=== PATIENT | female | born 1990 | race American Indian/Alaskan Native ===

== ENCOUNTER 2017-11-25 20:07 | Emergency (ER) | payer OTHER ==
[2017-11-25 21:36] LABS: Basophils # (Auto) 0.1 K/mm3 (0.0-0.1); Basophils % (Auto) 1.6 % (0.0-1.8); Eosinophils # (Auto) 0.3 K/mm3 (0.0-0.4); Eosinophils % (Auto) 4.2 % (0.0-4.3); Hematocrit 38.2 % (30.3-42.9); Hemoglobin 12.5 gm/dl (10.1-14.3); Lymphocytes # (Auto) 2.3 K/mm3 (1.2-5.4); Lymphocytes % (Auto) 34.8 % (13.4-35.0); Mean Corpuscular HGB Conc 33 % (30-34); Mean Corpuscular Hemoglobin 29 pg (28-32); Mean Corpuscular Volume 88 fl (79-97); Monocytes # (Auto) 0.6 K/mm3 (0.0-0.8); Monocytes % (Auto) 8.9 % (0.0-7.3); Platelet Count 271 K/mm3 (140-440); Red Blood Count 4.34 M/mm3 (3.65-5.03); Red Cell Distribution Width 13.9 % (13.2-15.2)
--- NOTE | 2017-11-26 01:01 | Ultrasound Report ---
FINAL REPORT EXAM: US OB TRANSVAGINAL HISTORY: Vaginal Bleeding TECHNIQUE: Transvaginal imaging was obtained of the pelvis. FINDINGS: The uterus is anteverted measuring 6.4 cm x 4.5 cm x 5.7 cm. The endometrial thickness is 5.3 millimeters. There is no evidence of a gestational sac. Along the endocervical canal is 7 millimeter cystic structure. Whether this represents retained products of conception or nabothian cyst is uncertain. Free fluid is not seen. The right ovary is normal size contour and echotexture measuring 3.1 cm x 2.3 cm x 2.2 cm. The left ovary is normal size contour and echotexture measuring 3.2 cm x 1.6 cm x 2 cm. IMPRESSION: No evidence of an intrauterine at this time. 7 mm cystic structure in the cervix. As to whether this represents retained products of conception or nabothian cyst is uncertain. Normal appearing ovaries.
--- NOTE | 2017-11-26 01:04 | Ultrasound Report ---
FINAL REPORT EXAM: US OB < = 14 WEEKS FETUS HISTORY: Vaginal Bleeding TECHNIQUE: Transabdominal imaging was obtained of the pelvis. FINDINGS: The uterus is anteverted measuring 6.4 cm x 4.5 cm x 5.7 cm. There is no evidence of an intrauterine gestational sac. The endometrial thickness is 5.3 mm. In the endocervical canal there is a 7 mm cystic structure. As to whether this represents retained products of conception or a nabothian cyst is uncertain. Both ovaries are normal in size contour and echotexture. The right ovary measures 3.1 cm x 2.3 cm x 2.2 cm. The left ovary measures 3.2 cm x 1.6 cm x 2 cm. There is no evidence of free fluid IMPRESSION: No evidence of an intrauterine at this time. 7 mm cystic structure in the cervix as described. As to whether this represents retained products of conception or an nabothian cyst is uncertain.
[2017-11-26 02:06] LABS: Bilirubin,Urine NEG (Negative); Blood,Urine LG (Negative); Color,Urine Red (Yellow); Mucus,Urine FEW /HPF; Nitrite,Urine NEG (Negative); Urobilinogen,Urine < 2.0 mg/dL (<2.0)
[2017-11-26] MEDS ORDERED: TORADOL IM ONE (02:07)
[2017-11-26] MEDS ORDERED: PERCOCET 5/325 PO PRN (02:07)
--- NOTE | 2017-11-26 02:11 | Emergency Department Report ---
ED Female HPI - General Chief complaint: Vaginal Bleeding Stated complaint: POSSIBLE MISCARRIAGE Time Seen by Provider: 11/26/17 01:49 Source: patient, RN notes reviewed Mode of arrival: Ambulatory Limitations: No Limitations - History of Present Illness Initial comments: This is a 27-year-old female who was previously unknown to this provider. She is 1, para 0. Last menstrual period is "sometime in the beginning of October." Patient's [employer] doctor is Dr. Stark at [facility] Patient reports that a day and a half ago she was seen at [facility] for vaginal bleeding, had quantitative hCG of 1999, and reports and ultrasound that suggested early intrauterine . She was instructed to return in 2 days for follow-up. She reports that's slightly less than a day later, she developed vaginal bleeding, cramping, and abdominal discomfort. This is constant. It does not radiate anywhere. Has no exacerbating or relieving factors. She endorses no headache, neck pain, chest pain, shortness of breath, urinary symptoms. MD Complaint: vaginal bleeding, pelvic pain -: Gradual Location: perineum Radiation: non-radiating Severity: moderate Quality: cramping Consistency: constant Improves with: none Worsens with: none Are you Now?: Yes Associated Symptoms: vaginal bleeding, abdominal pain. denies: vaginal discharge, nausea/vomiting, fever/chills, headaches, loss of appetite, dysuria, hematuria, rash, seizure, shortness of breath, syncope, weakness - Related Data Sexually active: Yes Previous Rx's Medication Instructions Recorded Last Taken Type HYDROcodone/ACETAMINOPHEN [[place] 1 each PO Q6H #20 tablet 12/01/14 Unknown Rx 7.5-325 mg TAB] Sulfamethoxazole/Trimethoprim 1 each PO Q12H #20 tablet 12/01/14 Unknown Rx [Bactrim Ds] Acetaminophen [Tylenol Arthritis] 650 mg PO Q6HR PRN #30 tablet.er 11/26/17 Unknown Rx Ibuprofen [Motrin] 600 mg PO Q8H PRN #30 tablet 11/26/17 Unknown Rx Ondansetron [Zofran Odt] 4 mg PO Q8HR PRN #20 tab.rapdis 11/26/17 Unknown Rx oxyCODONE [Roxicodone] 5 mg PO Q6HR PRN #15 tablet 11/26/17 Unknown Rx Allergies Allergy/AdvReac Type Severity Reaction Status Date / Time No Known Allergies Allergy Verified 12/01/14 23:28 ED Review of Systems ROS: Stated complaint: POSSIBLE MISCARRIAGE Other details as noted in HPI ED Past Medical Hx - Past Medical History Previous Medical History?: No Hx Hypertension: Yes Additional medical history: Pilonidal cyst - Surgical History Past Surgical History?: Yes - Social History Smoking Status: Never Smoker Substance Use Type: None - Medications Home Medications: Home Medications Medication Instructions Recorded Confirmed Last Taken Type HYDROcodone/ACETAMINOPHEN [[place] 1 each PO Q6H #20 tablet 12/01/14 Unknown Rx 7.5-325 mg TAB] Sulfamethoxazole/Trimethoprim 1 each PO Q12H #20 tablet 12/01/14 Unknown Rx [Bactrim Ds] Acetaminophen [Tylenol Arthritis] 650 mg PO Q6HR PRN #30 tablet.er 11/26/17 Unknown Rx Ibuprofen [Motrin] 600 mg PO Q8H PRN #30 tablet 11/26/17 Unknown Rx Ondansetron [Zofran Odt] 4 mg PO Q8HR PRN #20 tab.rapdis 11/26/17 Unknown Rx oxyCODONE [Roxicodone] 5 mg PO Q6HR PRN #15 tablet 11/26/17 Unknown Rx ED Physical Exam - General Limitations: No Limitations General appearance: alert, in no apparent distress - Head Head exam: Present: atraumatic, normocephalic - Eye Eye exam: Present: normal appearance, EOMI. Absent: nystagmus - ENT ENT exam: Present: normal exam, normal orophraynx, mucous membranes moist, normal external ear exam - Neck Neck exam: Present: normal inspection, full ROM. Absent: tenderness, meningismus - Respiratory Respiratory exam: Present: normal lung sounds bilaterally. Absent: respiratory distress - Cardiovascular Cardiovascular Exam: Present: regular rate, normal rhythm, normal heart sounds. Absent: systolic murmur, diastolic murmur, rubs, gallop - GI/Abdominal GI/Abdominal exam: Present: soft, normal bowel sounds. Absent: distended, tenderness, guarding, rebound, rigid, bruit, pulsatile mass - Extremities Exam Extremities exam: Present: normal inspection, full ROM, normal capillary refill. Absent: pedal edema, joint swelling, calf tenderness - Back Exam Back exam: Present: normal inspection, full ROM. Absent: tenderness, CVA tenderness (R), paraspinal tenderness, vertebral tenderness - Neurological Exam Neurological exam: Present: alert, oriented X3, CN II-XII intact, normal gait, other (Extraocular movements intact. Tongue midline. No facial droop. Facial sensation intact to light touch in the V1, V2, V3 distribution bilaterally. 5 and 5 strength in 4 extremities.. Sensation is intact to light touch in 4 extremities.). Absent: motor sensory deficit - Psychiatric Psychiatric exam: Present: normal affect, normal mood - Skin Skin exam: Present: warm, dry, intact, normal color. Absent: rash ED Course Vital Signs 11/25/17 11/26/17 11/26/17 21:13 01:47 02:21 Temperature 98.2 F Pulse Rate 83 64 Respiratory 17 18 20 Rate Blood Pressure 123/81 Blood Pressure 128/93 [Right] O2 Sat by Pulse 99 Oximetry 11/26/17 11/26/17 02:22 02:25 Temperature Pulse Rate Respiratory 18 20 Rate Blood Pressure Blood Pressure [Right] O2 Sat by Pulse 99 Oximetry ED Medical Decision Making - Lab Data Result diagrams: 11/25/17 21:20 Vital Signs - 24 hr 11/25/17 11/26/17 11/26/17 21:13 01:47 02:21 Temperature 98.2 F Pulse Rate 83 64 Respiratory 17 18 20 Rate Blood Pressure 123/81 Blood Pressure 128/93 [Right] O2 Sat by Pulse 99 Oximetry 11/26/17 11/26/17 02:22 02:25 Temperature Pulse Rate Respiratory 18 20 Rate Blood Pressure Blood Pressure [Right] O2 Sat by Pulse 99 Oximetry Lab Results 11/25/17 11/25/17 11/25/17 Range/Units 21:20 21:20 21:20 WBC 6.7 (4.5-11.0) K/mm3 RBC 4.34 (3.65-5.03) M/mm3 Hgb 12.5 (10.1-14.3) gm/dl Hct 38.2 (30.3-42.9) % MCV 88 (79-97) fl MCH 29 (28-32) pg MCHC 33 (30-34) % RDW 13.9 (13.2-15.2) % Plt Count 271 (140-440) K/mm3 Lymph % (Auto) 34.8 (13.4-35.0) % Dundy % (Auto) 8.9 H (0.0-7.3) % Eos % (Auto) 4.2 (0.0-4.3) % Baso % (Auto) 1.6 (0.0-1.8) % Lymph # 2.3 (1.2-5.4) K/mm3 Dundy # 0.6 (0.0-0.8) K/mm3 Eos # 0.3 (0.0-0.4) K/mm3 Baso # 0.1 (0.0-0.1) K/mm3 Seg Neutrophils % 50.5 (40.0-70.0) % Seg Neutrophils # 3.4 (1.8-7.7) K/mm3 HCG, Quant 640.0 H (0-4) mIU/mL Urine Color (Yellow) Urine Turbidity (Clear) Urine pH (5.0-7.0) Ur Specific [place] (1.003-1.030) Urine Protein (Negative) mg/dL Urine Glucose (UA) (Negative) mg/dL Urine Ketones (Negative) mg/dL Urine Blood (Negative) Urine Nitrite (Negative) Urine Bilirubin (Negative) Urine Urobilinogen (<2.0) mg/dL Ur Leukocyte Esterase (Negative) Urine WBC (Auto) (0.0-6.0) /HPF Urine RBC (Auto) (0.0-6.0) /HPF U Epithel Cells (Auto) (0-13.0) /HPF Urine Mucus /HPF Blood Type O POSITIVE Antibody Screen Negative 11/25/17 Range/Units Unknown WBC (4.5-11.0) K/mm3 RBC (3.65-5.03) M/mm3 Hgb (10.1-14.3) gm/dl Hct (30.3-42.9) % MCV (79-97) fl MCH (28-32) pg MCHC (30-34) % RDW (13.2-15.2) % Plt Count (140-440) K/mm3 Lymph % (Auto) (13.4-35.0) % Dundy % (Auto) (0.0-7.3) % Eos % (Auto) (0.0-4.3) % Baso % (Auto) (0.0-1.8) % Lymph # (1.2-5.4) K/mm3 Dundy # (0.0-0.8) K/mm3 Eos # (0.0-0.4) K/mm3 Baso # (0.0-0.1) K/mm3 Seg Neutrophils % (40.0-70.0) % Seg Neutrophils # (1.8-7.7) K/mm3 HCG, Quant (0-4) mIU/mL Urine Color Red (Yellow) Urine Turbidity Clear (Clear) Urine pH 5.0 (5.0-7.0) Ur Specific [place] 1.024 (1.003-1.030) Urine Protein 30 mg/dl (Negative) mg/dL Urine Glucose (UA) Neg (Negative) mg/dL Urine Ketones Neg (Negative) mg/dL Urine Blood Lg (Negative) Urine Nitrite Neg (Negative) Urine Bilirubin Neg (Negative) Urine Urobilinogen < 2.0 (<2.0) mg/dL Ur Leukocyte Esterase Neg (Negative) Urine WBC (Auto) 12.0 H (0.0-6.0) /HPF Urine RBC (Auto) 4.0 (0.0-6.0) /HPF U Epithel Cells (Auto) 17.0 H (0-13.0) /HPF Urine Mucus Few /HPF Blood Type Antibody Screen - Radiology Data Radiology results: report reviewed, image reviewed Print Report Referring Physician: GUSTAVO MEDRANO Patient Name: QIAN LUNA Date of : 1990 Sex: Female Report Date: 2017-11-25 Report Status: Finalized Findings [address] [address] Ultrasound Report Signed Patient: QIAN LUNA MR#: [id number] : 1990 Acct:[id number] Age/Sex: 27 / F ADM Date: 11/25/17 Loc: ED Attending Dr: Ordering Physician: GUSTAVO MEDRANO MD Date of Service: 11/25/17 Procedure(s): US OB transvaginal Accession Number(s): [id number] cc: GUSTAVO MEDRANO MD FINAL REPORT EXAM: US OB TRANSVAGINAL HISTORY: Vaginal Bleeding TECHNIQUE: Transvaginal imaging was obtained of the pelvis. FINDINGS: The uterus is anteverted measuring 6.4 cm x 4.5 cm x 5.7 cm. The endometrial thickness is 5.3 millimeters. There is no evidence of a gestational sac. Along the endocervical canal is 7 millimeter cystic structure. Whether this represents retained products of conception or nabothian cyst is uncertain. Free fluid is not seen. The right ovary is normal size contour and echotexture measuring 3.1 cm x 2.3 cm x 2.2 cm. The left ovary is normal size contour and echotexture measuring 3.2 cm x 1.6 cm x 2 cm. IMPRESSION: No evidence of an intrauterine at this time. 7 mm cystic structure in the cervix. As to whether this represents retained products of conception or nabothian cyst is uncertain. Normal appearing ovaries. Transcribed By: RB Dictated By: JAKI KRAUS MD Electronically Authenticated By: JAKI KRAUS MD Signed Date/Time: 11/25/172057 - Medical Decision Making Differential diagnosis, including but not limited to: , miscarriage, threatened miscarriage, ectopic Assessment and plan: 27-year-old female with probable miscarriage at this time. Quantitative hCG 640, down from reported level of 2000. Ultrasound today does not demonstrate evidence of intrauterine . There is a 7 mm cystic structure noted in the cervix. Patient declined a gynecologic exam, she indicates she is given a follow-up with her outpatient emergency medicine medical director. She is Rh+ . Critical care attestation.: If time is entered above; I have spent that time in minutes in the direct care of this critically ill patient, excluding procedure time. ED Disposition Clinical Impression: Miscarriage Disposition: DC-01 TO HOME OR SELFCARE Is pt being admited?: No Does the pt Need Aspirin: No Condition: Stable Instructions: Spontaneous Miscarriage (ED) Additional Instructions: Rest, and avoid heavy lifting. Avoid strenuous physical activity. Avoid sex and sexual activity. Follow-up in 2 days either in this emergency room, or with your private [employer] doctor for repeat physical exam, repeat quantitative hCG. Take the pain medication as directed, return to the ER right away with new pain, worsened pain, migration of pain, intractable nausea or vomiting, confusion, inability to tolerate liquid feeds. Referrals: [facility] [Provider Group] - 3-5 Days SMITH NEAL MD [Staff Physician] - 3-5 Days
[2017-11-26 03:35] VITALS: BP 128/79
== END 2017-11-26 03:35 | disposition home or self-care (01) ==
LOC: ED 20:07
DX: O03.9 Complete or unspecified spontaneous abortion without complication (principal); Z3A.01 Less than 8 weeks gestation of pregnancy
CPT/HCPCS: 36415; 76801; 76817; 81001; 84702; 85025; 86850; 86900; 86901; 96372; 99284; J1885

== ENCOUNTER 2017-12-10 12:52 | Emergency (ER) | payer OTHER ==
[2017-12-10 12:59] VITALS: BP 130/69
--- NOTE | 2017-12-10 14:20 | Emergency Department Report ---
HPI - General Chief Complaint: Vaginal Bleeding Time Seen by Provider: 12/10/17 13:44 - HPI HPI: Patient is a 27-year-old female who was seen here last week for complaints of vaginal bleeding and possible miscarriage. Patient presented today to 2 days ago vaginal bleeding and that she rates as low pelvic cramping. Patient states she hasn't been admitted for intensive low pelvic cramping. Patient states she is eating normally, normal bowel movements. Patient states that vaginal bleeding mildly less today but low pelvic cramping is still persistent. Patient states that she was unable to take the medication she was given because this is strong and made her sick. She took some Aleve and that did not help with the pain. She denies headaches/dizziness or shortness of breath/lightheadedness or blurred vision. ED Past Medical Hx - Past Medical History Hx Hypertension: Yes Additional medical history: Pilonidal cyst - Social History Smoking Status: Never Smoker Substance Use Type: None - Medications Home Medications: Home Medications Medication Instructions Recorded Confirmed Last Taken Type HYDROcodone/ACETAMINOPHEN [[place] 1 each PO Q6H #20 tablet 12/01/14 Unknown Rx 7.5-325 mg TAB] Sulfamethoxazole/Trimethoprim 1 each PO Q12H #20 tablet 12/01/14 Unknown Rx [Bactrim Ds] Acetaminophen [Tylenol Arthritis] 650 mg PO Q6HR PRN #30 tablet.er 11/26/17 Unknown Rx Ibuprofen [Motrin] 600 mg PO Q8H PRN #30 tablet 11/26/17 Unknown Rx Ondansetron [Zofran Odt] 4 mg PO Q8HR PRN #20 tab.rapdis 11/26/17 Unknown Rx oxyCODONE [Roxicodone] 5 mg PO Q6HR PRN #15 tablet 11/26/17 Unknown Rx Naproxen [Naprosyn] 500 mg PO BID #40 tablet 12/10/17 Unknown Rx traMADol [Ultram 50 MG tab] 50 mg PO Q6HR PRN #20 tablet 12/10/17 Unknown Rx ED Review of Systems ROS: Stated complaint: BACK PAIN Other details as noted in HPI Constitutional: denies: chills, fever Eyes: denies: eye pain, eye discharge, vision change ENT: denies: ear pain, throat pain Respiratory: denies: cough, shortness of breath, wheezing Cardiovascular: denies: chest pain, palpitations Endocrine: no symptoms reported Gastrointestinal: denies: abdominal pain, nausea, diarrhea Genitourinary: denies: urgency, dysuria, discharge Musculoskeletal: denies: back pain, joint swelling, arthralgia Skin: denies: rash, lesions Neurological: denies: headache, weakness, paresthesias Psychiatric: denies: anxiety, depression Hematological/Lymphatic: denies: easy bleeding, easy bruising Physical Exam - Physical Exam Vital Signs: Vital Signs 12/10/17 12:54 Temperature 98.3 F Pulse Rate 83 Respiratory 16 Rate Blood Pressure 130/69 O2 Sat by Pulse 100 Oximetry Physical Exam: GENERAL: Alert and oriented x3, no apparent distress, Normal Gait, atraumatic. HEAD: Head is normocephalic and a-traumatic. NECK: Supple. Non edematous, No carotid bruits. No lymphadenopathy or thyromegaly. No C-spine tenderness LUNGS: Symetrical with respiration, No wheezing, no rales or crackles, CTAB. HEART: S1, S2 present, regular rate and rhythm without murmur, no rubs, no gallops. Non tender to palpation ABDOMEN: No organomegaly was noted,Positive bowel sounds, soft, and non- distended. . Nontender to palpation on all Quadrants, NO CVA tenderness. BACK: Full range of motion, no spinal tenderness, nontender to palpation. SKIN: Warm and dry, No lesions, No ulceration or induration present. ED Course Vital Signs 12/10/17 12:54 Temperature 98.3 F Pulse Rate 83 Respiratory 16 Rate Blood Pressure 130/69 O2 Sat by Pulse 100 Oximetry ED Medical Decision Making - Medical Decision Making 27-year-old female presents to ED with complete ED course: Pt received a repeat quantitative in ED Quantitative was decreased to 6.4 from 640 last week Patient states that bleeding is mildly resolved, just still x-ray than some pelvic pain Patient is states that she has an appointment with her ROD FILLER on Saturday Ultrasound from last week shows no IUP Vital signs normalized patient is in no acute distress. I discussed with the patient if follow-up with her ROD FILLER. Referrals given. I discussed all labs and ultrasound findings with the patient. I discussed with the patient that he if bleeding worsens or new symptoms develop to return to ED immediately. Critical care attestation.: If time is entered above; I have spent that time in minutes in the direct care of this critically ill patient, excluding procedure time. ED Disposition Clinical Impression: Complete spontaneous Disposition: DC- TO HOME OR SELFCARE Is pt being admited?: No Does the pt Need Aspirin: No Condition: Stable Instructions: Spontaneous Miscarriage (ED) Additional Instructions: Make sure to follow up with the primary care physician as discussed. Follow-up with your ROD FILLER. Take all your medications as you've been prescribed. If you have any worsening symptoms or develop new symptoms please return to ED immediately. Prescriptions: Naproxen [Naprosyn] 500 mg PO BID #40 tablet traMADol [Ultram 50 MG tab] 50 mg PO Q6HR PRN #20 tablet PRN Reason: Pain Referrals: PRIMARY CARE,MD [Primary Care Provider] - 3-5 Days Forms: Accompanied Note, Work/School Release Form(ED) Time of Disposition: 14:57
[2017-12-10] MEDS ORDERED: NAPROSYN PO ONE (14:45)
== END 2017-12-10 15:00 | disposition home or self-care (01) ==
LOC: ED 12:52
DX: O03.9 Complete or unspecified spontaneous abortion without complication (principal); I10 Essential (primary) hypertension
CPT/HCPCS: 36415; 84702; 99283

== ENCOUNTER 2017-12-27 18:49 | Emergency (ER) | payer OTHER ==
[2017-12-27] MEDS ORDERED: MOTRIN PO ONE (20:41)
--- NOTE | 2017-12-27 23:19 | Emergency Department Report ---
ED ENT HPI - General Chief complaint: Dental/Oral Stated complaint: TOOTH/HEAD PAIN Time Seen by Provider: 12/27/17 23:14 Source: patient Mode of arrival: Ambulatory Limitations: No Limitations - History of Present Illness Initial comments: 27-year-old female presents with complaint of left upper toothache. Patient states she has a severe cavity and is getting it addressed by a dentist in 3 days. Patient states she was taking Motrin at home with minimal relief of pain. Denies any pus or blood drainage from mouth speaking in full sentences no trismus or drooling noted on exam. Patient awake alert and oriented 3. Denies any fevers or chills. MD complaint: tooth pain Onset/Timin -: week(s) Location: tooth # 1 - cavity here Severity: moderate Severity scale (0 -10): 5 Quality: aching Consistency: constant Worsens with: eating Context- Dental: history of dental caries, poor dental care Associated Symptoms: toothache - Related Data Previous Rx's Medication Instructions Recorded Last Taken Type HYDROcodone/ACETAMINOPHEN [[place] 1 each PO Q6H #20 tablet 12/01/14 Unknown Rx 7.5-325 mg TAB] Sulfamethoxazole/Trimethoprim 1 each PO Q12H #20 tablet 12/01/14 Unknown Rx [Bactrim Ds] Acetaminophen [Tylenol Arthritis] 650 mg PO Q6HR PRN #30 tablet.er 11/26/17 Unknown Rx Ibuprofen [Motrin] 600 mg PO Q8H PRN #30 tablet 11/26/17 Unknown Rx Ondansetron [Zofran Odt] 4 mg PO Q8HR PRN #20 tab.rapdis 11/26/17 Unknown Rx oxyCODONE [Roxicodone] 5 mg PO Q6HR PRN #15 tablet 11/26/17 Unknown Rx Naproxen [Naprosyn] 500 mg PO BID #40 tablet 12/10/17 Unknown Rx traMADol [Ultram 50 MG tab] 50 mg PO Q6HR PRN #20 tablet 12/10/17 Unknown Rx Chlorhexidine Mouthwash [Peridex] 15 ml MM BID #1 bottle 12/27/17 Unknown Rx Clindamycin [Clindamycin CAP] 300 mg PO Q6H #28 capsule 12/27/17 Unknown Rx Ibuprofen [Motrin] 600 mg PO Q8H PRN #25 tablet 12/27/17 Unknown Rx traMADol [Ultram 50 MG tab] 50 mg PO Q6HR PRN #15 tablet 12/27/17 Unknown Rx Allergies Allergy/AdvReac Type Severity Reaction Status Date / Time No Known Allergies Allergy Verified 12/01/14 23:28 ED Dental HPI - General Chief complaint: Dental/Oral Stated complaint: TOOTH/HEAD PAIN Time Seen by Provider: 12/27/17 23:14 Source: patient Mode of arrival: Ambulatory Limitations: No Limitations - Related Data Previous Rx's Medication Instructions Recorded Last Taken Type HYDROcodone/ACETAMINOPHEN [[place] 1 each PO Q6H #20 tablet 12/01/14 Unknown Rx 7.5-325 mg TAB] Sulfamethoxazole/Trimethoprim 1 each PO Q12H #20 tablet 12/01/14 Unknown Rx [Bactrim Ds] Acetaminophen [Tylenol Arthritis] 650 mg PO Q6HR PRN #30 tablet.er 11/26/17 Unknown Rx Ibuprofen [Motrin] 600 mg PO Q8H PRN #30 tablet 11/26/17 Unknown Rx Ondansetron [Zofran Odt] 4 mg PO Q8HR PRN #20 tab.rapdis 11/26/17 Unknown Rx oxyCODONE [Roxicodone] 5 mg PO Q6HR PRN #15 tablet 11/26/17 Unknown Rx Naproxen [Naprosyn] 500 mg PO BID #40 tablet 12/10/17 Unknown Rx traMADol [Ultram 50 MG tab] 50 mg PO Q6HR PRN #20 tablet 12/10/17 Unknown Rx Chlorhexidine Mouthwash [Peridex] 15 ml MM BID #1 bottle 12/27/17 Unknown Rx Clindamycin [Clindamycin CAP] 300 mg PO Q6H #28 capsule 12/27/17 Unknown Rx Ibuprofen [Motrin] 600 mg PO Q8H PRN #25 tablet 12/27/17 Unknown Rx traMADol [Ultram 50 MG tab] 50 mg PO Q6HR PRN #15 tablet 12/27/17 Unknown Rx Allergies Allergy/AdvReac Type Severity Reaction Status Date / Time No Known Allergies Allergy Verified 12/01/14 23:28 ED Review of Systems ROS: Stated complaint: TOOTH/HEAD PAIN Other details as noted in HPI Constitutional: denies: chills, fever Eyes: denies: eye pain, eye discharge, vision change ENT: dental pain. denies: ear pain, throat pain Respiratory: denies: cough, shortness of breath, wheezing Cardiovascular: denies: chest pain, palpitations Endocrine: no symptoms reported Gastrointestinal: denies: abdominal pain, nausea, diarrhea Genitourinary: denies: urgency, dysuria, discharge Musculoskeletal: denies: back pain, joint swelling, arthralgia Skin: denies: rash, lesions Neurological: denies: headache, weakness, paresthesias Psychiatric: denies: anxiety, depression Hematological/Lymphatic: denies: easy bleeding, easy bruising ED Past Medical Hx - Past Medical History Hx Hypertension: Yes Additional medical history: Pilonidal cyst - Surgical History Past Surgical History?: No - Social History Smoking Status: Current Every Day Smoker Substance Use Type: None - Medications Home Medications: Home Medications Medication Instructions Recorded Confirmed Last Taken Type HYDROcodone/ACETAMINOPHEN [[place] 1 each PO Q6H #20 tablet 12/01/14 Unknown Rx 7.5-325 mg TAB] Sulfamethoxazole/Trimethoprim 1 each PO Q12H #20 tablet 12/01/14 Unknown Rx [Bactrim Ds] Acetaminophen [Tylenol Arthritis] 650 mg PO Q6HR PRN #30 tablet.er 11/26/17 Unknown Rx Ibuprofen [Motrin] 600 mg PO Q8H PRN #30 tablet 11/26/17 Unknown Rx Ondansetron [Zofran Odt] 4 mg PO Q8HR PRN #20 tab.rapdis 11/26/17 Unknown Rx oxyCODONE [Roxicodone] 5 mg PO Q6HR PRN #15 tablet 11/26/17 Unknown Rx Naproxen [Naprosyn] 500 mg PO BID #40 tablet 12/10/17 Unknown Rx traMADol [Ultram 50 MG tab] 50 mg PO Q6HR PRN #20 tablet 12/10/17 Unknown Rx Chlorhexidine Mouthwash [Peridex] 15 ml MM BID #1 bottle 12/27/17 Unknown Rx Clindamycin [Clindamycin CAP] 300 mg PO Q6H #28 capsule 12/27/17 Unknown Rx Ibuprofen [Motrin] 600 mg PO Q8H PRN #25 tablet 12/27/17 Unknown Rx traMADol [Ultram 50 MG tab] 50 mg PO Q6HR PRN #15 tablet 12/27/17 Unknown Rx ED Physical Exam - General Limitations: No Limitations General appearance: alert, in no apparent distress - Head Head exam: Present: atraumatic, normocephalic - Eye Eye exam: Present: normal appearance, PERRL, EOMI - ENT ENT exam: Present: mucous membranes moist - Expanded ENT Exam Expanded Teeth exam: Present: dental tenderness # 1 - Dental Tenderness (cavity here) - Neck Neck exam: Present: normal inspection - Respiratory Respiratory exam: Present: normal lung sounds bilaterally. Absent: respiratory distress - Cardiovascular Cardiovascular Exam: Present: regular rate, normal rhythm. Absent: systolic murmur, diastolic murmur, rubs, gallop - GI/Abdominal GI/Abdominal exam: Present: soft, normal bowel sounds - Extremities Exam Extremities exam: Present: normal inspection - Back Exam Back exam: Present: normal inspection - Neurological Exam Neurological exam: Present: alert, oriented X3 - Psychiatric Psychiatric exam: Present: normal affect, normal mood - Skin Skin exam: Present: warm, dry, intact, normal color. Absent: rash ED Course Vital Signs 12/27/17 20:35 Temperature 98.7 F Pulse Rate 94 H Respiratory 18 Rate Blood Pressure 135/91 ED Medical Decision Making - Medical Decision Making A/P: dental cavities, toothache 1- Motrin when necessary, clindamycin course because patient is allergic to penicillin, Peridex mouthwash daily basis, short course codeine when necessary 2- patient states she has a follow-up with a dentist in 3 days 3- no clinical signs of facial abscess, no Hung's angina, no induration or cellulitis of floor of mouth or tongue 4- patient able to tolerate by mouth before discharge 5- no signs of facial infection. Advised patient that if she does not take antibiotics with follow-up with a dentist as soon as possible that a can result in potentially serious or dangerous infection to develop in jaw or face. Patient states that he understood these instructions. I advised patient to return to the ED for any persistent unrelenting nausea or vomiting fever or chills or headaches. Critical care attestation.: If time is entered above; I have spent that time in minutes in the direct care of this critically ill patient, excluding procedure time. ED Disposition Clinical Impression: Dental caries, Toothache Disposition: TO HOME OR SELFCARE Is pt being admited?: No Does the pt Need Aspirin: No Condition: Stable Instructions: Dental Caries (ED), Toothache (ED) Prescriptions: Chlorhexidine Mouthwash [Peridex] 15 ml MM BID #1 bottle Clindamycin [Clindamycin CAP] 300 mg PO Q6H #28 capsule Ibuprofen [Motrin] 600 mg PO Q8H PRN #25 tablet PRN Reason: Pain traMADol [Ultram 50 MG tab] 50 mg PO Q6HR PRN #15 tablet PRN Reason: Pain Referrals: [facility] [Outside] - 3-5 Days Time of Disposition: 23:17
[2017-12-27] MEDS ORDERED: ULTRAM PO ONE (23:21)
[2017-12-28 00:24] VITALS: BP 133/89
== END 2017-12-27 23:40 | disposition home or self-care (01) ==
LOC: ED 18:49
DX: K02.9 Dental caries, unspecified (principal); I10 Essential (primary) hypertension; F17.200 Nicotine dependence, unspecified, uncomplicated
CPT/HCPCS: 99282

== ENCOUNTER 2018-06-19 18:56 | Emergency (ER) | payer OTHER ==
[2018-06-20] MEDS ORDERED: ULTRAM PO ONE (01:31)
[2018-06-20] MEDS ORDERED: BACTRIM DS PO ONE (01:31)
--- NOTE | 2018-06-20 01:37 | Emergency Department Report ---
Abscess Boil HPI - HPI Chief Complaint: Skin/Abscess/Foreign Body Stated Complaint: CYST ON TAIL BONE/ABD PAIN Time Seen by Provider: 06/19/18 23:11 Duration: 2 Days Location: Other (groin) Severity: Mild History: Yes Previous History, No Fever, No Pain, No Purulent Drainage, No Insect Bite (recurring pilonidal abscess, ) Home Medications: Previous Rx's Medication Instructions Recorded Last Taken Type HYDROcodone/ACETAMINOPHEN [[place] 1 each PO Q6H #20 tablet 12/01/14 Unknown Rx 7.5-325 mg TAB] Sulfamethoxazole/Trimethoprim 1 each PO Q12H #20 tablet 12/01/14 Unknown Rx [Bactrim Ds] Acetaminophen [Tylenol Arthritis] 650 mg PO Q6HR PRN #30 tablet.er 11/26/17 Unknown Rx Ibuprofen [Motrin] 600 mg PO Q8H PRN #30 tablet 11/26/17 Unknown Rx Ondansetron [Zofran Odt] 4 mg PO Q8HR PRN #20 tab.rapdis 11/26/17 Unknown Rx oxyCODONE [Roxicodone] 5 mg PO Q6HR PRN #15 tablet 11/26/17 Unknown Rx Naproxen [Naprosyn] 500 mg PO BID #40 tablet 12/10/17 Unknown Rx traMADol [Ultram 50 MG tab] 50 mg PO Q6HR PRN #20 tablet 12/10/17 Unknown Rx Chlorhexidine Mouthwash [Peridex] 15 ml MM BID #1 bottle 12/27/17 Unknown Rx Clindamycin [Clindamycin CAP] 300 mg PO Q6H #28 capsule 12/27/17 Unknown Rx Ibuprofen [Motrin] 600 mg PO Q8H PRN #25 tablet 12/27/17 Unknown Rx traMADol [Ultram 50 MG tab] 50 mg PO Q6HR PRN #15 tablet 12/27/17 Unknown Rx Sulfamethoxazole/Trimethoprim 1 each PO BID #20 tablet 06/20/18 Unknown Rx [Bactrim DS TAB] traMADol [Ultram] 50 mg PO Q6HR PRN #12 tablet 06/20/18 Unknown Rx Allergies/Adverse Reactions: Allergies Allergy/AdvReac Type Severity Reaction Status Date / Time Penicillins Allergy Hives Verified 06/19/18 19:27 ED Review of Systems ROS: Stated complaint: CYST ON TAIL BONE/ABD PAIN Other details as noted in HPI Constitutional: denies: chills, fever Eyes: denies: eye pain, eye discharge, vision change ENT: denies: ear pain, throat pain Respiratory: denies: cough, shortness of breath, wheezing Cardiovascular: denies: chest pain, palpitations Endocrine: no symptoms reported Gastrointestinal: denies: abdominal pain, nausea, diarrhea Genitourinary: other (abscess ). denies: urgency, dysuria, discharge Musculoskeletal: denies: back pain, joint swelling, arthralgia Skin: denies: rash, lesions Neurological: denies: headache, weakness, paresthesias Psychiatric: denies: anxiety, depression Hematological/Lymphatic: denies: easy bleeding, easy bruising ED Past Medical Hx - Past Medical History Previous Medical History?: Yes Hx Hypertension: Yes Additional medical history: Pilonidal cyst - Surgical History Past Surgical History?: Yes Additional Surgical History: tailbone - Social History Smoking Status: Current Every Day Smoker Substance Use Type: None - Medications Home Medications: Home Medications Medication Instructions Recorded Confirmed Last Taken Type HYDROcodone/ACETAMINOPHEN [[place] 1 each PO Q6H #20 tablet 12/01/14 Unknown Rx 7.5-325 mg TAB] Sulfamethoxazole/Trimethoprim 1 each PO Q12H #20 tablet 12/01/14 Unknown Rx [Bactrim Ds] Acetaminophen [Tylenol Arthritis] 650 mg PO Q6HR PRN #30 tablet.er 11/26/17 Unknown Rx Ibuprofen [Motrin] 600 mg PO Q8H PRN #30 tablet 11/26/17 Unknown Rx Ondansetron [Zofran Odt] 4 mg PO Q8HR PRN #20 tab.rapdis 11/26/17 Unknown Rx oxyCODONE [Roxicodone] 5 mg PO Q6HR PRN #15 tablet 11/26/17 Unknown Rx Naproxen [Naprosyn] 500 mg PO BID #40 tablet 12/10/17 Unknown Rx traMADol [Ultram 50 MG tab] 50 mg PO Q6HR PRN #20 tablet 12/10/17 Unknown Rx Chlorhexidine Mouthwash [Peridex] 15 ml MM BID #1 bottle 12/27/17 Unknown Rx Clindamycin [Clindamycin CAP] 300 mg PO Q6H #28 capsule 12/27/17 Unknown Rx Ibuprofen [Motrin] 600 mg PO Q8H PRN #25 tablet 12/27/17 Unknown Rx traMADol [Ultram 50 MG tab] 50 mg PO Q6HR PRN #15 tablet 12/27/17 Unknown Rx Sulfamethoxazole/Trimethoprim 1 each PO BID #20 tablet 06/20/18 Unknown Rx [Bactrim DS TAB] traMADol [Ultram] 50 mg PO Q6HR PRN #12 tablet 06/20/18 Unknown Rx ED Abscess Boil Physical Exam - Exam General: Vital signs noted. No distress. Alert and acting appropriately. Size: 1 cm Exam: Yes Tenderness, Yes Surrounding Cellulites/Erythema, Yes Normal Neurologic Exam, Yes Normal Circulation, No Fluctuance, No Crepitation, No Heart Murmur Exam: Small left groin abscess less than half centimeter small buttocks abscess less than half centimeter painful no erythema no fluctuance not hot to touch I & D Note - I & D Note I & D Note: Abscesses continue Betadine solution anesthesia 1% lidocaine plain 18-gauge needle stabbed scant bloody drainage left groin, buttocks abscess, and Betadine solution anesthesia 1% lidocaine plain 18-gauge stant incision scant purulent output. Sterile dressings applied all bleeding is controlled patient tolerated with minimal distress patient given wound care instructions verbalized understanding of same. ED Course Vital Signs 06/19/18 19:24 Temperature 99.2 F Pulse Rate 99 H Respiratory 14 Rate Blood Pressure 132/90 O2 Sat by Pulse 100 Oximetry Critical care attestation.: If time is entered above; I have spent that time in minutes in the direct care of this critically ill patient, excluding procedure time. ED Medical Decision Making - Medical Decision Making These were very shallow very small abscesses , Abscesses were I&Dd, via straight needle scant output, all bleeding control sterile dressing applied pt given wound care instructions, plan, dc to home wt rx for bactrim DS, will follow up with pcp in 2-3 days for wound check. pt verbalized agreement and understanding of same. ED Disposition Clinical Impression: Abscess Disposition: DC-01 TO HOME OR SELFCARE Is pt being admited?: No Does the pt Need Aspirin: No Condition: Good Instructions: Abscess (ED) Prescriptions: Sulfamethoxazole/Trimethoprim [Bactrim DS TAB] 1 each PO BID #20 tablet traMADol [Ultram] 50 mg PO Q6HR PRN #12 tablet PRN Reason: Pain Referrals: RENARD ONEAL MD [Staff Physician] - 3-5 Days Forms: Work/School Release Form(ED) Time of Disposition: 01:48
[2018-06-20 04:41] VITALS: BP 130/88
== END 2018-06-20 02:00 | disposition home or self-care (01) ==
LOC: ED 18:56
DX: L02.214 Cutaneous abscess of groin (principal); L02.31 Cutaneous abscess of buttock; I10 Essential (primary) hypertension; F17.200 Nicotine dependence, unspecified, uncomplicated